=== PATIENT | male | born 1985 | race Caucasian/White ===

== ENCOUNTER 2017-10-31 19:56 | Emergency (ER) | payer OTHER, MEDICAID ==
[~2017-10-31] VITALS: Ht 172.7 cm; Wt 80.0 kg
[2017-10-31 20:12] VITALS: BP 145/73
== END 2017-10-31 20:57 | disposition home or self-care (01) ==
LOC: ED 20:51
DX: J15.9 Unspecified bacterial pneumonia (principal)
CPT/HCPCS: 71020; 99284

== ENCOUNTER 2018-03-12 16:07 | Emergency (ER) | payer OTHER, MEDICAID ==
[~2018-03-12] VITALS: Ht 172.7 cm; Wt 77.0 kg
[2018-03-12 16:11] VITALS: BP 116/72
== END 2018-03-12 17:39 | disposition home or self-care (01) ==
LOC: ED 17:33
DX: J18.1 Lobar pneumonia, unspecified organism (principal); F17.200 Nicotine dependence, unspecified, uncomplicated
CPT/HCPCS: 71046; 99284

== ENCOUNTER 2018-05-31 03:30 | Emergency (ER) | payer OTHER, MEDICAID ==
[~2018-05-31] VITALS: Ht 172.7 cm; Wt 80.0 kg
[2018-05-31 03:35] VITALS: BP 117/73
[2018-05-31] MEDS ORDERED: LIDOCAINE-MPF 2% ,5ML ONE (04:08)
[2018-05-31] MEDS ORDERED: BUPIVACAINE 0.25% ONE (04:09)
[2018-05-31] MEDS ORDERED: LIDOCAINE 2%, 20ML SQ ONE (04:30)
[2018-05-31] MEDS ORDERED: BUPIVACAINE/PF-EPI 0.25% 1:200K SQ ONE (04:30)
== END 2018-05-31 04:26 | disposition home or self-care (01) ==
LOC: ED 04:20
DX: K04.7 Periapical abscess without sinus (principal)
CPT/HCPCS: 64400; 99284

== ENCOUNTER 2018-06-01 20:21 | Emergency (ER) | payer OTHER, MEDICAID ==
[~2018-06-01] VITALS: Ht 172.7 cm; Wt 78.6 kg
[2018-06-01 20:32] VITALS: BP 157/94
[2018-06-01] MEDS ORDERED: LIDOCAINE-MPF 1%, 5ML INFIL ONE (21:00)
== END 2018-06-01 21:04 | disposition home or self-care (01) ==
LOC: ED 20:58
DX: K08.89 Other specified disorders of teeth and supporting structures (principal)
CPT/HCPCS: 99282; 99283